=== PATIENT | female | born 1955 | race Caucasian/White ===

== ENCOUNTER → 2017-01-25 | Outpatient (CLI) | payer OTHER ==
--- NOTE | 2017-01-29 11:23 | RSPPFT ---
DATE OF PROCEDURE: 01/25/17 COMMENTS: Spirometry with FVC of 2.8 predicted 3.8, FEV1 of 2.2 predicted 3.1, FEV1/FVC ratio 79% predicted 80%. There is mild air trapping with RV at 2.3 predicted 2.2. DLCO is reduced to 37% of predicted. IMPRESSION: On the basis of the above, patient has a mild restrictive lung defect with decreased DLCO.
== END ==
LOC: HRSP 09:16
PROVIDERS: ATTEND Internal Medicine Pulmonary Disease
DX: J47.9 Bronchiectasis, uncomplicated (principal); R04.2 Hemoptysis
CPT/HCPCS: 94060; 94726; 94729